=== PATIENT | female | born 1985 | race Native Hawaiian/Other Pacific Islander ===

== ENCOUNTER 2018-11-02 21:58 | Emergency (ER) | payer OTHER ==
[2018-11-02 22:27] VITALS: BP 107/67; PULSE 68; RESP 20; TEMP 98.4; O2SAT 99
--- NOTE | 2018-11-02 22:59 | C.PDOC ---
History Of Present Illness 32 year old female presents to ED s/p trip and fall that occurred earlier today. Patient states that she injured her left wrist. She complains of pain and swelling to the area. She denies weakness, numbness, other injuries, or head impact. Time Seen by Provider: 11/02/18 22:11 Chief Complaint (Nursing): Upper Extremity Problem/Injury History Per: Patient History/Exam Limitations: no limitations Onset/Duration Of Symptoms: Days (1) Current Symptoms Are (Timing): Still Present Quality: "Pain" Past Medical History Reviewed: Historical Data, Nursing Documentation, Vital Signs Vital Signs: Last Vital Signs Temp 98.4 F 11/02/18 22:07 Pulse 68 11/02/18 22:07 Resp 20 11/02/18 22:07 BP 107/67 11/02/18 22:07 Pulse Ox 99 11/02/18 22:07 Primary Care Provider: FAMILY PROVIDER,NO - Medical History PMH: No Chronic Diseases Surgical History: No Surg Hx Family History: States: Unknown Family Hx - Social History Hx Alcohol Use: No Hx Substance Use: No Review Of Systems Constitutional: Negative for: Fever, Chills, Weakness Cardiovascular: Negative for: Chest Pain Gastrointestinal: Negative for: Abdominal Pain Musculoskeletal: Positive for: Arm Pain (left wrist pain) Neurological: Negative for: Weakness, Numbness, Headache Physical Exam - Physical Exam Appears: Non-toxic, No Acute Distress Skin: Normal Color, Warm, Dry Head: Atraumatic, Normacephalic Neck: Normal ROM, Supple Chest: Symmetrical, No Deformity Extremity: Tenderness (dorsal aspect of the left wrist, greater at the radial aspect), Capillary Refill (<2 seconds), Swelling (dorsal aspect of the left wrist, greater at the radial aspect), Other (limited ROM of the left wrist due to pain ) Extremity: Right: Atraumatic, Normal Color And Temperature, Normal ROM Pulses: Left Radial: Normal, Right Radial: Normal Neurological/Psych: Oriented x3, Normal Speech, Normal Cognition, Normal Motor (5/5 strength), Normal Sensation Gait: Steady ED Course And Treatment O2 Sat by Pulse Oximetry: 99 (in RA) Pulse Ox Interpretation: Normal - Other Rad Left wrist x-ray X-Ray: Interpreted by Me (non-displaced fracture of the left distal radius), Viewed By Me Interpretation: Fracture of left distal radius Progress Note: Left wrist x-ray ordered for patient. Patient given Motrin PO. Patient placed in a volar splint and sling by CP and checked by me. Advised orthopedic follow up Disposition Counseled Patient/Family Regarding: Diagnosis, Need For Followup, Rx Given - Disposition Referrals: Job Hernandez III, MD [Staff Provider] - Disposition: HOME/ ROUTINE Disposition Time: 22:57 Condition: STABLE Additional Instructions: Please keep splint for support / Elevate in splint Take advil or motrin for pain Make an appointment with orthopedist Return to ER if worse Instructions: Wrist Fracture (DC) Forms: [employer] (Tajik) - Clinical Impression Clinical Impression: Wrist fracture, left - PA / SALESPERSON BURIAL NEEDS / Resident Statement MD/DO has reviewed & agrees with the documentation as recorded. (Sierra Lopez) - Scribe Statement The provider has reviewed the documentation as recorded by the Scribe (Sierra Lopez) All medical record entries made by the Scribe were at my direction and personally dictated by me. I have reviewed the chart and agree that the record accurately reflects my personal performance of the history, physical exam, medical decision making, and the department course for this patient. I have also personally directed, reviewed, and agree with the discharge instructions and disposition.
--- NOTE | 2018-11-03 17:05 | RAD ---
Date of service: 11/02/2018 PROCEDURE: Left Wrist Radiographs. HISTORY: left wrist pain and swelling, fall COMPARISON: None. TECHNIQUE: 4 views obtained. FINDINGS: BONES: Acute fracture at the distal left radius JOINTS: Normal. No dislocation. SOFT TISSUES: Normal. OTHER FINDINGS: None. IMPRESSION: Acute nondisplaced fracture at the distal left radius.
== END 2018-11-02 23:36 | disposition home or self-care (01) ==
LOC: C.ER 21:58
DX: S52.502A Unspecified fracture of the lower end of left radius, initial encounter for closed fracture (principal); W01.0XXA Fall on same level from slipping, tripping and stumbling without subsequent striking against object, initial encounter